=== PATIENT | female | born 1980 | race Caucasian/White ===

== ENCOUNTER 2017-08-17 05:01 | Emergency (ER) | payer OTHER | END 2017-08-17 06:39 | disposition home or self-care (01) | LOC: ERS 05:01 | DX: B86 Scabies (principal); G43.909 Migraine, unspecified, not intractable, without status migrainosus; I10 Essential (primary) hypertension; F41.9 Anxiety disorder, unspecified; F32.9 Major depressive disorder, single episode, unspecified; F17.210 Nicotine dependence, cigarettes, uncomplicated | CPT/HCPCS: 99282 ==

== ENCOUNTER 2017-09-29 20:00 | Outpatient (CLI) | payer OTHER | END 2017-09-29 20:01 | disposition home or self-care (01) | LOC: SLEEPLAB 20:00 | PROVIDERS: ATTEND Family Medicine | DX: G47.33 Obstructive sleep apnea (adult) (pediatric) (principal); F41.8 Other specified anxiety disorders; E66.9 Obesity, unspecified; R06.83 Snoring | CPT/HCPCS: 95806 ==

== ENCOUNTER 2020-11-01 09:43 | Emergency (ER) | payer OTHER ==
[2020-11-01] MEDS ORDERED: Ketorolac Tromethamine 30 MG/ML VIAL ONE (10:47)
--- NOTE | 2020-11-01 11:31 | RAD ---
Left knee 4 views HISTORY: Knee injury. FINDINGS: Joint spaces are preserved. Mild osteophytosis of the tibial spines. No acute fracture or dislocation are apparent. Small amount of fluid distends the suprapatellar bursa on the lateral view. IMPRESSION : No acute osseous abnormalities are demonstrated. Fluid distention of the suprapatellar bursa, in the setting of acute injury, could reflect hemarthros is from soft tissue derangement or an effusion from otherwise minimal osteoarthritis.
--- NOTE | 2020-11-01 11:32 | RAD ---
Left ankle 3 views HISTORY: Injury. FINDINGS: Ankle mortise and talar dome are intact. No acute fracture, dislocation, or aggressive osse ous erosions. IMPRESSION : No abnormalities are demonstrated.
== END 2020-11-01 12:10 | disposition home or self-care (01) ==
LOC: ERS 09:43
DX: M25.562 Pain in left knee (principal); F17.210 Nicotine dependence, cigarettes, uncomplicated
CPT/HCPCS: 96372; J1885

== ENCOUNTER 2022-02-22 12:43 | Emergency (ER) | payer SELFPAY ==
[2022-02-22] MEDS ORDERED: Acetaminophen 500 MG TAB ONE (13:23)
[2022-02-22] MEDS ORDERED: Magnesium 2 GM/50 ML BAG (IN WATER) ONE (13:23)
[2022-02-22] MEDS ORDERED: Prochlorperazine 10 MG/2 ML VIAL ONE (13:23)
[2022-02-22] MEDS ORDERED: diphenhydrAMINE 50 MG/ML VIAL ONE (13:23)
== END 2022-02-22 15:14 | disposition home or self-care (01) ==
LOC: ERS 12:43
DX: R51.9 Headache, unspecified (principal); F17.210 Nicotine dependence, cigarettes, uncomplicated; Z79.899 Other long term (current) drug therapy
CPT/HCPCS: 70450; 96365; 96375; J0780; J1200; J3475

== ENCOUNTER 2022-11-30 14:37 | Emergency (ER) | payer SELFPAY | END 2022-11-30 16:34 | disposition left against medical advice (07) | LOC: ERS 14:37 | DX: Z53.21 Procedure and treatment not carried out due to patient leaving prior to being seen by health care provider (principal) | CPT/HCPCS: 93005 ==

== ENCOUNTER 2023-03-16 18:20 | Emergency (ER) | payer BC ==
[2023-03-16] MEDS ORDERED: Magnesium 2 GM/50 ML BAG (IN WATER) ONE (19:33)
[2023-03-16] MEDS ORDERED: Ketorolac Tromethamine 30 MG/ML VIAL ONE (19:33)
[2023-03-16] MEDS ORDERED: Acetaminophen 500 MG TAB ONE (19:33)
[2023-03-16] MEDS ORDERED: Prochlorperazine 10 MG/2 ML VIAL ONE (19:33)
== END 2023-03-16 20:58 | disposition home or self-care (01) ==
LOC: ERS 18:20
DX: G43.909 Migraine, unspecified, not intractable, without status migrainosus (principal); F17.200 Nicotine dependence, unspecified, uncomplicated
CPT/HCPCS: 96374; 96375; J0780; J1885; J3475

== ENCOUNTER 2024-05-07 10:13 | Outpatient (CLI) | payer BC | END 2024-05-07 10:14 | disposition home or self-care (01) | LOC: BICRAD 10:13 | PROVIDERS: ATTEND Family Medicine | DX: M47.22 Other spondylosis with radiculopathy, cervical region (principal); M48.02 Spinal stenosis, cervical region | CPT/HCPCS: 72050 ==

== ENCOUNTER 2024-05-21 02:15 | Emergency (ER) | payer BC ==
[2024-05-21] MEDS ORDERED: Ketorolac Tromethamine 30 MG (1 mL) VIAL ONE (03:28)
[2024-05-21] MEDS ORDERED: Orphenadrine Citrate 60 MG/2 ML VIAL ONE (03:50)
[2024-05-21] MEDS ORDERED: Dexamethasone 10 MG/ML VIAL ONE (03:58)
== END 2024-05-21 05:18 | disposition home or self-care (01) ==
LOC: ERS 02:15
DX: M54.12 Radiculopathy, cervical region (principal); F17.290 Nicotine dependence, other tobacco product, uncomplicated
CPT/HCPCS: 96372; 99283; J1100; J1885; J2360

== ENCOUNTER 2024-08-02 11:52 | Outpatient (CLI) | payer BC ==
[~2024-08-02 11:52] MED LIST: Ondansetron HCl/PF 4 MG/2 ML Vial IVP PRN; Promethazine HCl 25 MG/ML VIAL IM PRN
== END 2024-08-02 11:53 | disposition home or self-care (01) ==
LOC: SCSMRI 11:52
PROVIDERS: ATTEND Family Medicine
DX: R94.02 Abnormal brain scan (principal); R90.82 White matter disease, unspecified; I67.89 Other cerebrovascular disease
CPT/HCPCS: 70553; 76376

== ENCOUNTER 2024-08-05 09:51 | Outpatient (CLI) | payer BC ==
[2024-08-05 11:22] LABS: #Basophils 0.09 10x3/uL (0.0-0.2); %Eosinophils 2.5 % (0.0-10.0); %Lymphocytes 30.7 % (21.0-51.0); %Monocytes 11.4 % (0.0-10.0); Hemoglobin 12.9 g/dL (12.0-16.0); Mean Corpuscular HGB CONC 32.3 g/dL (32.0-36.0); Mean Corpuscular Hemoglobin 29.9 pg (27.0-31.0); Mean Corpuscular Volume 92.6 fL (78.0-98.0); Mean Platelet Volume 8.6 fL (7.4-10.4); Platelet Count 649 10x3/uL (130-400); RBC Distribution Width 11.6 % (11.5-14.5); Red Blood Cell (RBC) Count 4.32 mill/uL (4.20-5.40)
[2024-08-05 11:35] LABS: Prothrombin Time 12.8 sec (12.0-14.7)
[2024-08-05 11:36] LABS: PTT 35.5 sec (22.9-36.1)
[2024-08-05 11:39] LABS: Anion Gap 11 mmol/L (10-20); BUN (Urea Nitrogen) 15 mg/dL (7.0-18.7); Calc. Creatinine Clearance 0 mL/min (70-130); Calcium 9.7 mg/dL (7.8-10.44); Carbon Dioxide 26 mmol/L (22-29); Chloride 101 mmol/L (98-107); Estimated GFR 84; Glucose 105 mg/dL (70-105); Potassium 4.2 mmol/L (3.5-5.1); Sodium 134 mmol/L (136-145)
== END 2024-08-05 09:52 | disposition home or self-care (01) ==
LOC: LABBT 09:51
PROVIDERS: ATTEND Urology
DX: Z01.818 Encounter for other preprocedural examination (principal); N20.1 Calculus of ureter; N39.0 Urinary tract infection, site not specified; B96.4 Proteus (mirabilis) (morganii) as the cause of diseases classified elsewhere; Z72.0 Tobacco use
CPT/HCPCS: 80048; 85025; 85610; 85730; 93005; 93010

== ENCOUNTER 2024-08-16 08:29 | Day surgery (SDC) | payer BC ==
[2024-08-05 10:04] VITALS: BMI 44.0
[2024-08-16] MEDS ORDERED: cefTRIAXone (ROCEPHIN) 2 GM VIAL ONE (10:03)
[2024-08-16] MEDS ORDERED: Sodium Chloride 0.9% 100 ML ONE (10:03)
[2024-08-16] MEDS ORDERED: Ondansetron PF 4 MG/2 ML Vial ONE (10:31)
[2024-08-16] MEDS ORDERED: Dexamethasone 20 MG/5 ML VIAL ONE (10:31)
[2024-08-16] MEDS ORDERED: fentaNYL PF 100 MCG/2 ML SYRINGE ONE (10:31)
[2024-08-16] MEDS ORDERED: Rocuronium Bromide 10 MG/ML (10ML VIAL) ONE (10:31)
[2024-08-16] MEDS ORDERED: Midazolam HCl 2 mg/2 ml Vial ONE (10:31)
[2024-08-16] MEDS ORDERED: PROPOFOL 20 ML ONE (10:31)
[2024-08-16] MEDS ORDERED: Lidocaine 1% PF 5 ML VIAL ONE (10:31)
[2024-08-16] MEDS ORDERED: PHENYLEPHRINE-NS 100 MCG/ML 10 ML SYRINGE ONE (10:31)
[2024-08-16] MEDS ORDERED: SUGAMMADEX SODIUM 200 MG/2 ML VIAL ONE (11:28)
[2024-08-16] MEDS ORDERED: Oxybutynin 5 MG TAB ONE (12:17)
== END 2024-08-16 13:25 | disposition home or self-care (01) ==
LOC: SDC 08:29
PROVIDERS: ATTEND Urology
PROC: 0T768DZ Dilation of Right Ureter with Intraluminal Device, Via Natural or Artificial Opening Endoscopic (ICD-10-PCS; principal; 2024-08-16)
PROC: 0TF68ZZ Fragmentation in Right Ureter, Via Natural or Artificial Opening Endoscopic (ICD-10-PCS; principal; 2024-08-16)
DX: N20.1 Calculus of ureter (principal); F41.9 Anxiety disorder, unspecified; Z79.899 Other long term (current) drug therapy
CPT/HCPCS: 74018; 74420; 82365; 88300; C1769; C2617; J0696; J1100; J2250; J2405; J2704

== ENCOUNTER 2024-09-24 20:33 | Emergency (ER) | payer BC ==
[2024-09-24] MEDS ORDERED: predniSONE 20 MG TAB ONE ×2 (21:32→21:35)
[2024-09-24] MEDS ORDERED: Cyclobenzaprine 10 MG TAB ONE (21:32)
== END 2024-09-24 21:50 | disposition home or self-care (01) ==
LOC: ERS 20:33
DX: M79.601 Pain in right arm (principal); F17.290 Nicotine dependence, other tobacco product, uncomplicated
CPT/HCPCS: 99282; J7512